=== PATIENT | female | born 1960 | race Caucasian/White ===

== ENCOUNTER → 2018-07-01 | Outpatient (CLI) | payer MEDICARE, OTHER | END | disposition home or self-care (01) | LOC: VAS 17:02 | DX: M79.662 Pain in left lower leg (principal) | CPT/HCPCS: 93971 ==

== ENCOUNTER 2018-10-28 21:13 | Inpatient (IN) | payer MEDICARE, OTHER ==
[2018-10-28] MEDS: ACETAMINOPHEN 325 MG TAB PO (21:59)
[2018-10-28 22:34] LABS: ADD UMIC YES; UR ASCORBIC ACID NEGATIVE (NEGATIVE); UR BACTERIA MANY /HPF (NONE SEEN); UR BILIRUBIN (Dip) NEGATIVE (NEGATIVE); UR BLOOD (Dip) 2+ mg/dL (NEGATIVE); UR CLARITY SLIGHTLY CLOUDY (CLEAR); UR COLOR YELLOW (YELLOW); UR GLUCOSE (Dip) NEGATIVE (NEGATIVE); UR KETONES (Dip) NEGATIVE (NEGATIVE); UR LEUKOCYTE ESTERASE (Dip) 1+ Leu/ul (NEGATIVE); UR NITRITE (Dip) POSITIVE (NEGATIVE); UR RBC 3 /HPF (0-5); UR SPECIFIC GRAVITY (Dip) 1.015 (1.003-1.030); UR TOTAL PROTEIN (Dip) 2+ mg/dl (NEGATIVE); UR UROBILINOGEN (Dip) NEGATIVE (NEGATIVE); UR WBC 32 /HPF (0-5)
[2018-10-28 22:37] LABS: ABNORMAL IP MESSAGE 1; HEMATOCRIT 37.1 % (37.0-47.0); HEMOGLOBIN 12.2 g/dl (12.0-16.0); MEAN CORPUSCULAR HEMOGLOBIN 33.2 pg (29.0-33.0); MEAN CORPUSCULAR HGB CONC 32.9 g/dl (32.0-37.0); MEAN CORPUSCULAR VOLUME 100.8 fl (82.0-101.0); MEAN PLATELET VOLUME 12.3 fl (7.4-10.4); PLATELET COUNT 72 10^3/UL (140-415); RED BLOOD COUNT 3.68 10^6/ul (4.20-5.40); RED CELL DISTRIBUTION WIDTH 12.4 % (11.5-14.5)
[2018-10-28 22:37] LABS: WHITE BLOOD COUNT 9.6 10^3/ul (4.8-10.8)
[2018-10-28] MEDS: SODIUM CHLORIDE 0.9% 1L BAG IV* ×2 (22:40→22:43)
[2018-10-28 22:45] LABS: ADD MAN DIFF? YES; POSITIVE DIFF @See below
[2018-10-28] MEDS: CEFEPIME 2GM/50 ML (PMX) 50 ML IVPB (22:50)
[2018-10-28 22:58] LABS: PARTIAL THROMBOPLASTIN TIME 34.7 Sec (23.0-35.0); PROTIME 14.3 Sec (11.9-14.9); PT RATIO 1.1
[2018-10-28 23:00] LABS: BLOOD UREA NITROGEN 43 mg/dl (7-20); CALCIUM 8.5 mg/dl (8.4-10.2); CARBON DIOXIDE 21 mmol/L (21-31); CREATININE 1.31 mg/dl (0.44-1.00); Estimated GFR 42 mL/min (>60); GLUCOSE 150 mg/dl (70-220); POTASSIUM 5.2 mmol/L (3.5-5.1); SODIUM 130 mmol/L (135-144)
[2018-10-28 23:11] LABS: ANION GAP 8 (5-13); CHLORIDE 101 mmol/L (97-110); TROPONIN-I 0.082 ng/ml (0.000-0.120)
[2018-10-28 23:12] LABS: ANISOCYTOSIS 1+ (0-0); BAND NEUTROPHILS % (M) 1 % (0-4); GIANT THROMBO% (M) 2 % (0-0); LYMPHOCYTES % (M) 1 % (15-51); MONOCYTE #M 0.5 10^3/ul (0.3-0.9); MONOCYTES % (M) 6 % (0-11); PLATELET ESTIMATE DECREASED; POLYCHROMASIA 1+ (0-0); SEG NEUT #M 8.8 10^3/ul (1.6-7.5); SEGMENTED NEUTROPHILS (M) % 92 % (39-77); SMUDGE%M 2 % (0-0)
[2018-10-28] MEDS ORDERED: ONDANSETRON 4 MG INJ IV (23:30)
[2018-10-28] MEDS ORDERED: ACETAMINOPHEN 325 MG TAB PO (23:30)
[2018-10-29] MEDS: VANCOMYCIN 1 GM (PMX) 250 ML IVPB (00:39)
[2018-10-29] MEDS: SOD CHLORIDE 0.9% 1,000 ML IV ×3 (02:38→17:32)
[2018-10-29] MEDS: ACETAMINOPHEN 325 MG TAB PO (05:42)
[2018-10-29 06:17] LABS: LACTIC ACID 1.5 mmol/L (0.5-2.0)
[2018-10-29] MEDS ORDERED: traMADol 50 MG TAB PO (08:00)
[2018-10-29] MEDS ORDERED: SOD CHLORIDE 0.9% 1,000 ML IV (08:00)
[2018-10-29] MEDS ORDERED: predniSONE 10 MG TAB PO (09:00)
[2018-10-29] MEDS: FOLIC ACID 1 MG TAB PO (09:28)
[2018-10-29] MEDS: DULOXETINE 30 MG CAP DR PO ×2 (09:28→20:37)
[2018-10-29] MEDS: predniSONE 10 MG TAB PO (09:28)
[2018-10-29] MEDS: PREGABALIN 100 MG CAP PO (09:28)
[2018-10-29] MEDS: DILTIAZEM (CD) 180 MG CAP PO (09:28)
[2018-10-29] MEDS: PANTOPRAZOLE (EC) 40 MG TAB PO ×2 (09:28→17:31)
[2018-10-29] MEDS: TACROLIMUS 1 MG CAP PO ×2 (09:35→20:37)
[2018-10-29] MEDS: MYCOPHENOLATE 250 MG CAP PO ×2 (09:35→20:43)
[2018-10-29] MEDS: HYDROCODONE/APAP (10/325) TAB PO ×2 (09:36→21:01)
[2018-10-29] MEDS: HEPARIN 5,000 UNIT/1 ML VIAL SC ×2 (09:45→20:39)
[2018-10-29] MEDS: LEVOFLOXACIN 250MG/D5W (PMX) 50 ML IVPB (10:13)
[2018-10-29] MEDS: RANITIDINE 150 MG TAB PO (20:37)
[2018-10-30] MEDS: SOD CHLORIDE 0.9% 1,000 ML IV ×2 (02:53→18:27)
[2018-10-30] MEDS: HYDROCODONE/APAP (10/325) TAB PO ×2 (05:06→20:58)
[2018-10-30] MEDS: PANTOPRAZOLE (EC) 40 MG TAB PO ×2 (05:06→18:25)
[2018-10-30 05:57] LABS: ADD MAN DIFF? NO
[2018-10-30 06:04] LABS: WHITE BLOOD COUNT 6.9 10^3/ul (4.8-10.8)
[2018-10-30 06:04] LABS: ABNORMAL IP MESSAGE 1; BASOPHILS % 0.1 % (0.0-2.0); EOSINOPHILS % 0.3 % (0.0-7.0); HEMATOCRIT 32.3 % (37.0-47.0); HEMOGLOBIN 10.4 g/dl (12.0-16.0); LYMPHOCYTES # 0.5 10^3/ul (0.8-2.9); LYMPHOCYTES % 6.9 % (15.0-51.0); MEAN CORPUSCULAR HEMOGLOBIN 32.4 pg (29.0-33.0); MEAN CORPUSCULAR HGB CONC 32.2 g/dl (32.0-37.0); MEAN CORPUSCULAR VOLUME 100.6 fl (82.0-101.0); MEAN PLATELET VOLUME 12.2 fl (7.4-10.4); MONOCYTE # 0.7 10^3/ul (0.3-0.9); MONOCYTES % 10.7 % (0.0-11.0); NEUTROPHIL # 5.7 10^3/ul (1.6-7.5); NEUTROPHILS % 81.4 % (39.0-77.0); RED BLOOD COUNT 3.21 10^6/ul (4.20-5.40); RED CELL DISTRIBUTION WIDTH 12.4 % (11.5-14.5)
[2018-10-30] MEDS: LEVOFLOXACIN 250 MG TAB PO (06:06)
[2018-10-30 06:19] LABS: POSITIVE DIFF @See below
[2018-10-30 06:20] LABS: PLATELET COUNT 55 10^3/UL (140-415)
[2018-10-30 06:33] LABS: INR 1.09; PROTIME 14.2 Sec (11.9-14.9); PT RATIO 1.1
[2018-10-30 06:34] LABS: PARTIAL THROMBOPLASTIN TIME 32.7 Sec (23.0-35.0)
[2018-10-30 06:54] LABS: ALANINE AMINOTRANSFERASE 15 IU/L (13-69); ALBUMIN 2.8 g/dl (3.3-4.9); ALBUMIN/GLOBULIN RATIO 0.93; ALKALINE PHOSPHATASE 59 IU/L (42-121); ANION GAP 11 (5-13); ASPARTATE AMINO TRANSFERASE 23 IU/L (15-46); BILIRUBIN,INDIRECT 0.3 mg/dl (0-1.1); BILIRUBIN,TOTAL 0.3 mg/dl (0.2-1.3); BLOOD UREA NITROGEN 16 mg/dl (7-20); CALCIUM 7.7 mg/dl (8.4-10.2); CARBON DIOXIDE 17 mmol/L (21-31); CHLORIDE 112 mmol/L (97-110); CREATININE 0.72 mg/dl (0.44-1.00); Estimated GFR > 60 mL/min (>60); GLUCOSE 163 mg/dl (70-220); POTASSIUM 4.1 mmol/L (3.5-5.1); SODIUM 140 mmol/L (135-144); TOTAL PROTEIN 5.8 g/dl (6.1-8.1)
[2018-10-30] MEDS: DULOXETINE 30 MG CAP DR PO ×2 (09:06→20:52)
[2018-10-30] MEDS: MYCOPHENOLATE 250 MG CAP PO ×2 (09:06→20:52)
[2018-10-30] MEDS: FOLIC ACID 1 MG TAB PO (09:06)
[2018-10-30] MEDS: TACROLIMUS 1 MG CAP PO ×2 (09:07→20:51)
[2018-10-30] MEDS: predniSONE 10 MG TAB PO (09:07)
[2018-10-30] MEDS: PREGABALIN 100 MG CAP PO (09:07)
[2018-10-30] MEDS: DILTIAZEM (CD) 180 MG CAP PO (09:08)
[2018-10-30] MEDS: HEPARIN 5,000 UNIT/1 ML VIAL SC ×2 (09:45→21:18)
[2018-10-30 10:53] LABS: ADD UMIC YES; UR ASCORBIC ACID NEGATIVE (NEGATIVE); UR BILIRUBIN (Dip) NEGATIVE (NEGATIVE); UR BLOOD (Dip) NEGATIVE (NEGATIVE); UR CLARITY CLEAR (CLEAR); UR COLOR YELLOW (YELLOW); UR GLUCOSE (Dip) NEGATIVE (NEGATIVE); UR KETONES (Dip) NEGATIVE (NEGATIVE); UR LEUKOCYTE ESTERASE (Dip) NEGATIVE Leu/ul (NEGATIVE); UR NITRITE (Dip) NEGATIVE (NEGATIVE); UR RBC 1 /HPF (0-5); UR SPECIFIC GRAVITY (Dip) 1.013 (1.003-1.030); UR TOTAL PROTEIN (Dip) 1+ mg/dl (NEGATIVE); UR UROBILINOGEN (Dip) NEGATIVE (NEGATIVE); UR WBC 14 /HPF (0-5)
[2018-10-30] MEDS: LEVOFLOXACIN 500MG/D5W (PMX) 100 ML IVPB (11:19)
[2018-10-30] MEDS: DIPHENHYDRAMINE 25 MG CAP PO (11:19)
[2018-10-30 15:53] LABS: ADD MAN DIFF? NO
[2018-10-30 15:56] LABS: ABNORMAL IP MESSAGE 1; BASOPHILS % 0.2 % (0.0-2.0); EOSINOPHILS % 0.2 % (0.0-7.0); HEMATOCRIT 35.7 % (37.0-47.0); HEMOGLOBIN 11.3 g/dl (12.0-16.0); LYMPHOCYTES # 0.2 10^3/ul (0.8-2.9); LYMPHOCYTES % 3.5 % (15.0-51.0); MEAN CORPUSCULAR HEMOGLOBIN 32.5 pg (29.0-33.0); MEAN CORPUSCULAR HGB CONC 31.7 g/dl (32.0-37.0); MEAN CORPUSCULAR VOLUME 102.6 fl (82.0-101.0); MEAN PLATELET VOLUME 11.7 fl (7.4-10.4); MONOCYTE # 0.4 10^3/ul (0.3-0.9); MONOCYTES % 7.2 % (0.0-11.0); NEUTROPHIL # 5.3 10^3/ul (1.6-7.5); NEUTROPHILS % 88.4 % (39.0-77.0); RED BLOOD COUNT 3.48 10^6/ul (4.20-5.40)
[2018-10-30 16:03] LABS: PLATELET COUNT 54 10^3/UL (140-415); POSITIVE DIFF @See below
[2018-10-30] MEDS: RANITIDINE 150 MG TAB PO (20:52)
[2018-10-31] MEDS: PANTOPRAZOLE (EC) 40 MG TAB PO ×2 (05:03→17:41)
[2018-10-31 06:50] LABS: ADD MAN DIFF? NO
[2018-10-31 06:56] LABS: ABNORMAL IP MESSAGE 1; BASOPHILS % 0.1 % (0.0-2.0); EOSINOPHILS % 0.4 % (0.0-7.0); HEMATOCRIT 33.7 % (37.0-47.0); HEMOGLOBIN 10.9 g/dl (12.0-16.0); LYMPHOCYTES # 0.6 10^3/ul (0.8-2.9); LYMPHOCYTES % 8.3 % (15.0-51.0); MEAN CORPUSCULAR HEMOGLOBIN 32.7 pg (29.0-33.0); MEAN CORPUSCULAR HGB CONC 32.3 g/dl (32.0-37.0); MEAN CORPUSCULAR VOLUME 101.2 fl (82.0-101.0); MEAN PLATELET VOLUME 12.3 fl (7.4-10.4); MONOCYTE # 0.7 10^3/ul (0.3-0.9); MONOCYTES % 10.8 % (0.0-11.0); NEUTROPHIL # 5.5 10^3/ul (1.6-7.5); NEUTROPHILS % 79.8 % (39.0-77.0); RED BLOOD COUNT 3.33 10^6/ul (4.20-5.40); RED CELL DISTRIBUTION WIDTH 12.9 % (11.5-14.5)
[2018-10-31 06:56] LABS: WHITE BLOOD COUNT 6.8 10^3/ul (4.8-10.8)
[2018-10-31 07:10] LABS: POSITIVE DIFF @See below
[2018-10-31 07:11] LABS: PLATELET COUNT 71 10^3/UL (140-415)
[2018-10-31] MEDS: HYDROCODONE/APAP (10/325) TAB PO (07:12)
[2018-10-31 07:14] LABS: ANION GAP 6 (5-13); BLOOD UREA NITROGEN 14 mg/dl (7-20); CALCIUM 7.9 mg/dl (8.4-10.2); CARBON DIOXIDE 21 mmol/L (21-31); CHLORIDE 111 mmol/L (97-110); CREATININE 0.63 mg/dl (0.44-1.00); Estimated GFR > 60 mL/min (>60); GLUCOSE 107 mg/dl (70-220); MAGNESIUM 1.6 mg/dl (1.7-2.5); PHOSPHORUS 1.4 mg/dl (2.5-4.9); POTASSIUM 4.8 mmol/L (3.5-5.1); SODIUM 138 mmol/L (135-144)
[2018-10-31] MEDS: FOLIC ACID 1 MG TAB PO (08:17)
[2018-10-31] MEDS: MYCOPHENOLATE 250 MG CAP PO ×2 (08:17→20:47)
[2018-10-31] MEDS: TACROLIMUS 1 MG CAP PO ×2 (08:18→20:46)
[2018-10-31] MEDS: DULOXETINE 30 MG CAP DR PO ×2 (08:18→20:47)
[2018-10-31] MEDS: predniSONE 10 MG TAB PO (08:19)
[2018-10-31] MEDS: DILTIAZEM (CD) 180 MG CAP PO (08:19)
[2018-10-31] MEDS: HEPARIN 5,000 UNIT/1 ML VIAL SC ×2 (08:46→20:51)
[2018-10-31] MEDS: PREGABALIN 100 MG CAP PO ×2 (08:47→20:47)
[2018-10-31] MEDS: MAGNESIUM SULFATE 2 GM/50 ML 50 ML IVPB ×2 (09:29→20:55)
[2018-10-31] MEDS: LEVOFLOXACIN 500MG/D5W (PMX) 100 ML IVPB (10:51)
[2018-10-31] MEDS ORDERED: SODIUM PHOSPHATE 30 MMOL in SOD CHLORIDE 0.9% 250 ML IVPB (11:00)
[2018-10-31] MEDS: SODIUM PHOSPHATE IV (11:52)
[2018-10-31] MEDS: SOD CHLORIDE 0.9% IV (11:52)
[2018-10-31] MEDS: SOD CHLORIDE 0.9% 1,000 ML IV (15:09)
[2018-10-31] MEDS: RANITIDINE 150 MG TAB PO (20:47)
[2018-10-31] MEDS: HYDROmorphONE 1 MG/ML SYG IV (21:44)
[2018-11-01] MEDS: HYDROmorphONE 1 MG/ML SYG IV (03:59)
[2018-11-01 06:27] LABS: ADD MAN DIFF? NO
[2018-11-01] MEDS: PANTOPRAZOLE (EC) 40 MG TAB PO ×2 (06:30→17:47)
[2018-11-01 06:32] LABS: WHITE BLOOD COUNT 7.2 10^3/ul (4.8-10.8)
[2018-11-01 06:32] LABS: BASOPHILS % 0.1 % (0.0-2.0); EOSINOPHILS % 0.3 % (0.0-7.0); HEMATOCRIT 35.6 % (37.0-47.0); HEMOGLOBIN 11.3 g/dl (12.0-16.0); LYMPHOCYTES # 0.7 10^3/ul (0.8-2.9); LYMPHOCYTES % 9.7 % (15.0-51.0); MEAN CORPUSCULAR HEMOGLOBIN 32.3 pg (29.0-33.0); MEAN CORPUSCULAR HGB CONC 31.7 g/dl (32.0-37.0); MEAN CORPUSCULAR VOLUME 101.7 fl (82.0-101.0); MEAN PLATELET VOLUME 11.9 fl (7.4-10.4); MONOCYTE # 0.8 10^3/ul (0.3-0.9); MONOCYTES % 11.4 % (0.0-11.0); NEUTROPHIL # 5.6 10^3/ul (1.6-7.5); NEUTROPHILS % 77.5 % (39.0-77.0); RED CELL DISTRIBUTION WIDTH 13.1 % (11.5-14.5)
[2018-11-01 06:37] LABS: PLATELET COUNT 101 10^3/UL (140-415); POSITIVE DIFF @See below
[2018-11-01 07:09] LABS: ALANINE AMINOTRANSFERASE 19 IU/L (13-69); ALBUMIN 3.1 g/dl (3.3-4.9); ALKALINE PHOSPHATASE 62 IU/L (42-121); ANION GAP 7 (5-13); ASPARTATE AMINO TRANSFERASE 20 IU/L (15-46); BILIRUBIN,INDIRECT 0.4 mg/dl (0-1.1); BILIRUBIN,TOTAL 0.4 mg/dl (0.2-1.3); BLOOD UREA NITROGEN 14 mg/dl (7-20); CALCIUM 8.5 mg/dl (8.4-10.2); CARBON DIOXIDE 23 mmol/L (21-31); CHLORIDE 111 mmol/L (97-110); CREATININE 0.65 mg/dl (0.44-1.00); Estimated GFR > 60 mL/min (>60); GLUCOSE 99 mg/dl (70-220); MAGNESIUM 2.6 mg/dl (1.7-2.5); PHOSPHORUS 2.9 mg/dl (2.5-4.9); POTASSIUM 4.9 mmol/L (3.5-5.1); SODIUM 141 mmol/L (135-144); TOTAL PROTEIN 6.2 g/dl (6.1-8.1)
[2018-11-01] MEDS: predniSONE 10 MG TAB PO (08:38)
[2018-11-01] MEDS: TACROLIMUS 1 MG CAP PO ×2 (08:38→20:32)
[2018-11-01] MEDS: MYCOPHENOLATE 250 MG CAP PO ×2 (08:38→20:31)
[2018-11-01] MEDS: FOLIC ACID 1 MG TAB PO (08:38)
[2018-11-01] MEDS: DULOXETINE 30 MG CAP DR PO ×2 (08:38→20:31)
[2018-11-01] MEDS: DILTIAZEM (CD) 180 MG CAP PO (08:39)
[2018-11-01] MEDS: PREGABALIN 100 MG CAP PO ×2 (08:43→20:36)
[2018-11-01] MEDS: HEPARIN 5,000 UNIT/1 ML VIAL SC ×2 (08:43→20:48)
[2018-11-01] MEDS: HYDROCODONE/APAP (10/325) TAB PO (09:31)
[2018-11-01] MEDS: LEVOFLOXACIN 500MG/D5W (PMX) 100 ML IVPB (10:31)
[2018-11-01 10:47] LABS: ADD UMIC YES; UR ASCORBIC ACID NEGATIVE (NEGATIVE); UR BILIRUBIN (Dip) NEGATIVE (NEGATIVE); UR BLOOD (Dip) 1+ mg/dL (NEGATIVE); UR CLARITY CLEAR (CLEAR); UR COLOR YELLOW (YELLOW); UR GLUCOSE (Dip) NEGATIVE (NEGATIVE); UR KETONES (Dip) NEGATIVE (NEGATIVE); UR LEUKOCYTE ESTERASE (Dip) TRACE Leu/ul (NEGATIVE); UR NITRITE (Dip) NEGATIVE (NEGATIVE); UR RBC 6 /HPF (0-5); UR SPECIFIC GRAVITY (Dip) 1.011 (1.003-1.030); UR TOTAL PROTEIN (Dip) NEGATIVE (NEGATIVE); UR UROBILINOGEN (Dip) NEGATIVE (NEGATIVE); UR WBC 14 /HPF (0-5)
[2018-11-01] MEDS: LACTULOSE 30ML CUP PO (12:38)
[2018-11-01] MEDS: L ACIDOPHIL/B LACTIS/B LONGUM CAPSULE PO ×2 (12:38→20:31)
[2018-11-01] MEDS: DOCUSATE SODIUM 100 MG CAP PO (12:38)
[2018-11-01] MEDS: SOD CHLORIDE 0.9% 1,000 ML IV ×2 (14:41→23:43)
[2018-11-01] MEDS: RANITIDINE 150 MG TAB PO (20:36)
[2018-11-02] MEDS: HYDROCODONE/APAP (10/325) TAB PO ×2 (01:17→12:36)
[2018-11-02] MEDS: PANTOPRAZOLE (EC) 40 MG TAB PO (05:49)
[2018-11-02] MEDS: LEVOFLOXACIN 500 MG TAB PO (05:49)
[2018-11-02] MEDS: L ACIDOPHIL/B LACTIS/B LONGUM CAPSULE PO (08:34)
[2018-11-02] MEDS: TACROLIMUS 1 MG CAP PO (08:34)
[2018-11-02] MEDS: DILTIAZEM (CD) 180 MG CAP PO (08:35)
[2018-11-02] MEDS: DULOXETINE 30 MG CAP DR PO (08:35)
[2018-11-02] MEDS: predniSONE 10 MG TAB PO (08:36)
[2018-11-02] MEDS: DOCUSATE SODIUM 100 MG CAP PO (08:36)
[2018-11-02] MEDS: MYCOPHENOLATE 250 MG CAP PO (08:36)
[2018-11-02] MEDS: FOLIC ACID 1 MG TAB PO (08:36)
[2018-11-02] MEDS: PREGABALIN 100 MG CAP PO (08:38)
[2018-11-02] MEDS: HEPARIN 5,000 UNIT/1 ML VIAL SC (08:45)
[2018-11-02 09:06] LABS: ADD MAN DIFF? NO
[2018-11-02 09:10] LABS: BASOPHILS % 0.2 % (0.0-2.0); EOSINOPHILS % 0.8 % (0.0-7.0); HEMATOCRIT 34.6 % (37.0-47.0); HEMOGLOBIN 10.9 g/dl (12.0-16.0); LYMPHOCYTES # 0.8 10^3/ul (0.8-2.9); LYMPHOCYTES % 14.9 % (15.0-51.0); MEAN CORPUSCULAR HEMOGLOBIN 32.1 pg (29.0-33.0); MEAN CORPUSCULAR HGB CONC 31.5 g/dl (32.0-37.0); MEAN CORPUSCULAR VOLUME 101.8 fl (82.0-101.0); MEAN PLATELET VOLUME 11.4 fl (7.4-10.4); MONOCYTE # 0.5 10^3/ul (0.3-0.9); MONOCYTES % 9.9 % (0.0-11.0); NEUTROPHIL # 3.8 10^3/ul (1.6-7.5); NEUTROPHILS % 72.7 % (39.0-77.0); PLATELET COUNT 111 10^3/UL (140-415); RED CELL DISTRIBUTION WIDTH 12.9 % (11.5-14.5)
[2018-11-02 09:10] LABS: WHITE BLOOD COUNT 5.2 10^3/ul (4.8-10.8)
[2018-11-02 09:35] LABS: ANION GAP 8 (5-13); BLOOD UREA NITROGEN 20 mg/dl (7-20); CALCIUM 9.4 mg/dl (8.4-10.2); CARBON DIOXIDE 22 mmol/L (21-31); CHLORIDE 111 mmol/L (97-110); CREATININE 0.71 mg/dl (0.44-1.00); Estimated GFR > 60 mL/min (>60); GLUCOSE 89 mg/dl (70-220); MAGNESIUM 1.8 mg/dl (1.7-2.5); PHOSPHORUS 3.3 mg/dl (2.5-4.9); POTASSIUM 4.6 mmol/L (3.5-5.1); SODIUM 141 mmol/L (135-144)
== END 2018-11-02 15:52 | disposition home or self-care (01) | DRG 872 ==
LOC: E/R 21:13 → TEL 23:21
DX: A41.9 Sepsis, unspecified organism (principal); N39.0 Urinary tract infection, site not specified; Z94.0 Kidney transplant status; B96.20 Unspecified Escherichia coli [E. coli] as the cause of diseases classified elsewhere; D69.6 Thrombocytopenia, unspecified; K57.90 Diverticulosis of intestine, part unspecified, without perforation or abscess without bleeding; M32.9 Systemic lupus erythematosus, unspecified; Z87.891 Personal history of nicotine dependence
CPT/HCPCS: 36415; 71045; 74176; 76775; 80048; 80053; 81001; 83605; 83735; 84100; 84484; 85025; 85610; 85730; 87040; 87086; 87400; 93005; 93306; 96374; 97116; 97161; 97530; 99291-25